=== PATIENT | female | born 1940 | race Caucasian/White ===

== ENCOUNTER 2019-06-30 14:33 | Inpatient (IN) | payer MEDICARE, OTHER ==
[~2019-06-30] VITALS: Ht 160 cm; Wt 66.0 kg
[~2019-06-30 14:33] MED LIST: ACET325 PO; ALIGN; Augmentin 875-1 EACH PO; Calcium Carbon500 MG PO; DIGESTIVE ADVANTAGE; DOCU100 PO; ESOMEPRAZOLE MA40 MG PO; ESTMEDA PO; Estradiol0.5 MG PO; GABA100 PO; GABA300 PO; IBUP800 PO; LEVSOD150 PO; MEDR2.5 PO; ONDA4ODT MM; Percocet 5-3251 EACH PO; VERA120 PO
[2019-06-30 15:09] LABS: BASOPHILS ABSOLUTE AUTO 0.02 K/mm3 (0.00-0.23); BASOPHILS PERCENT AUTO 0 % (0-2); EOSINOPHILS ABSOLUTE AUTO 0.11 K/mm3 (0.00-0.68); EOSINOPHILS PERCENT AUTO 2 % (0-6); Hematocrit 39.5 % (33.0-51.0); Hemoglobin 13.1 g/dL (11.5-16.0); IMMATURE GRAN ABSOLUTE AUTO 0.01 K/mm3 (0.00-0.10); IMMATURE GRAN PERCENT AUTO 0 % (0-1); LYMPHOCYTES ABSOLUTE AUTO 1.21 K/mm3 (0.84-5.20); LYMPHOCYTES PERCENT AUTO 21 % (21-46); MONOCYTES ABSOLUTE AUTO 0.48 K/mm3 (0.16-1.47); MONOCYTES PERCENT AUTO 8 % (4-13); Mean Corpuscular HGB Conc 33.2 g/dL (31.5-36.5); Mean Corpuscular Volume 90 fL (80-100); Mean Platelet Volume 9.7 fL (9.1-12.4); NEUTROPHILS ABSOLUTE AUTO 3.99 K/mm3 (1.96-9.15); NEUTROPHILS PERCENT AUTO 69 % (41-73); Platelet Count 276 K/mm3 (150-400); RDW Coefficient Variation 14.6 % (11.7-14.2); RDW Standard Deviation 48.8 fL (35.1-46.3); Red Blood Cell Count 4.37 M/mm3 (3.80-5.20); White Blood Cell Count 5.82 K/mm3 (4.00-11.30)
[2019-06-30 15:33] LABS: Alanine Aminotransfer (ALT/SGP 27 U/L (12-78); Albumin, Blood 3.7 g/dL (3.4-5.0); Albumin/Globulin Ratio 1.3 (0.8-1.8); Alk Phos 56 U/L (50-136); Anion Gap 5 mmol/L (6-16); Aspartate Aminotrans (AST/SGOT 21 U/L (12-37); Bilirubin, Total 0.4 mg/dL (0.1-1.0); Blood Urea Nitrogen 15 mg/dL (8-24); Bun/Creatinine Ratio 25.1 (12.0-20.0); CO2, Blood 25 mmol/L (21-32); Calcium, Blood 8.8 mg/dL (8.5-10.1); Chloride, Blood 114 mmol/L (98-108); Globulin, Blood 2.8 g/dL (2.2-4.0); Glomerular Filtration Rate >60 (60-); Glucose, Blood 120 mg/dL (70-99); Potassium, Blood 3.5 mmol/L (3.5-5.5); Sodium, Blood 144 mmol/L (136-145); Total Protein, Blood 6.5 g/dL (6.4-8.2); Troponin I 0.422 ng/mL (0.000-0.040)
[2019-06-30] MEDS ORDERED: GLUCOSAMINE/CHONDROI PO (16:02)
--- NOTE | 2019-06-30 19:20 | NUR ---
[address] GUADARRAMA. NEED ONE MORE TROP AND EKG 9PM. EXPECT CATH IN AM. JESSICAO CHACHA
--- NOTE | 2019-06-30 19:22 | NUR ---
PT RECEIVED ABOUT 1830, SETTLED TO ROOM. DENIES CHEST PAIN OR DISCOMFORT. IS TALKING ON PHONE. A/O. H/R REG, NO MURMER NOTED. PER TELE NSR AT 74. LUNGS CLEAR, RESP EASY, UNLABORED. ON R.A. BTX4 LAST BM YEST. VOIDS PER BATHROOM. SBA NEUROPATHY. SOME UNSTEADY AND HAS FALLEN AT HOME. BED IN LOW POSITION, BED IN LOW POSITION, CALL LITE IN REAC, CALLS APPROP
[2019-07-01 05:32] LABS: Anion Gap 7 mmol/L (6-16); Blood Urea Nitrogen 12 mg/dL (8-24); Bun/Creatinine Ratio 23.1 (12.0-20.0); CHOL/HDL RATIO 4.4; CO2, Blood 23 mmol/L (21-32); Calcium, Blood 8.2 mg/dL (8.5-10.1); Chloride, Blood 115 mmol/L (98-108); Cholesterol 161 mg/dL (50-200); Creatinine, Blood 0.52 mg/dL (0.40-1.00); Glomerular Filtration Rate >60 (60-); Glucose, Blood 102 mg/dL (70-99); HDL Cholesterol 37 mg/dL (>39); LDL/HDL RATIO 2.7; Low Density Lipoprotein Chol 100 mg/dL (0-110); Potassium, Blood 3.5 mmol/L (3.5-5.5); Sodium, Blood 145 mmol/L (136-145); Triglycerides 119 mg/dL (30-160); Very Low Density Lipoprot Chol 23 mg/dL (6-32)
--- NOTE | 2019-07-01 05:36 | NUR ---
SHIFT SUMMARY: 78 Y/O FEMALE RESTED COMFORTABLY ALL SHIFT, PT RANG FOR ASSISTANCE ALL SHIFT WHEN UTILIZING BATHROOM X 1 STANDBY ASSIST, NO S/S BLEEDING NOTED OR VOICED, HEPARIN INFUSING WITHOUT ISSUE; NPO SINCE MIDNIGHT, SENT HOME ALL JEWELRY WITH LAST NIGHT TO INCLUDE EARRINGS, ALL RINGS, WATCH, DENIES NAUSEA OR PAIN, PT RECEIVED EKG X 1 LAST NIGHT FOR NON RADIATING CHEST PAIN RATED 2/10 WHICH IMMEDIATLY RESOLVED (EKG NSR AND HISTORICAL RECORDS ADMINISTRATOR VERIFIED), BED ALARM APPLIED (HISTORY OF FALLS X 2 PAST MONTH), BED LOW POSITION, CALL LIGHT AT SIDE.
--- NOTE | 2019-07-01 07:15 | NUR ---
PT PLEASAANT COOP A/O. TALKATIVE. DENIES CHEST PAIN, PRESSURE, DISCOMFORT. TALKING ON PHONE. H/R REG, NO MURMERNOTED. PER TELE: NSR AT 83. LUNGS CLEAR, RESP EASY, UNLABORED. ON R/A. TALKING FULL SENTENCES. BT X4 LAST BM YEST. HOLDING COLACE AND MIRALAX FOR PROCEDURE. VOIDS PER BATHROOM. BED IN LOW POSITION, CALL LITE IN REACH, CALLS APPROP. HEPARIN RUNNING PER ORDERS IN EMAR. PENDING DR DIAZ TO SEE PT.
--- NOTE | 2019-07-01 08:29 | NUR ---
PATIENT DID NOT EAT ANY BREAKFAST THIS SHIFT DUE TO BEING NPO AT THIS TIME FOR A PROCEDURE.
--- NOTE | 2019-07-01 09:54 | NUR ---
ECHOCARDIOGRAM COMPLETED
--- NOTE | 2019-07-01 11:00 | NUR ---
UPON ARRIVAL TO ICU R RADIAL SITE WITH POSSIBLE GRADE 1 HEMATOMA, AIR REMOVED FROM TR BAND, TR BAND REPOSITIONED AND REINFLATED (TOTAL 8 CC AIR). R RADIAL PROXIMAL SITE SOFT WITHOUT SWELLING POST REPOSITIONING, CMS CHECKS INTACT R HAND. SITE WAS REVIEWED WITH ALEKS VERDUGO AND RT SARAH.
--- NOTE | 2019-07-01 11:11 | NUR ---
PT ARRIVED TO ICU 2 AT 1054. PT AWAKE, BUT DROWSY, ORIENTED. SPO2 IS 92% ON RA. R FEMORAL SITE IS SOFT. R RADIAL SITE HAD SOME BRUISING AND FIRMNESS UPON ARRIVAL. HC STAFF READJUSTED THE TR BAND AND SITE APPEARS STABLE, MONITORING CLOSELY. PT EDUCATED ON ACTIVITY RESTRICTIONS RELATED TO ACCESS SITES.
--- NOTE | 2019-07-01 16:22 | NUR ---
SHIFT SUMMARY: PT'S FEMORAL SITE HAS DONE WELL SINCE DIRECTOR OF ACQUISITIONS WITH NO HEMATOMA. SHE HAS BEEN UP AND AMBULATED AND SITE REMAINS STABLE. HER R RADIAL SITE HAD A HEMATOMA BEFORE TR BAND WAS REMOVED. PRESSURE HAD TO BE HELD A COUPLE TIMES AND RIGHT NOW THE SITE IS SOFT. TR BAND IS OFF. SITE IS ECCHYMOTIC WELL. PT'S LUNGS REMAIN CLEAR, RA. SR, BP STABLE, SEE VITALS. VOIDING WITHOUT DIFFICULTY. PT'S IN AND ALL QUESTIOSN WERE ANSWERED. LOTS OF EDUCATION REGARDING PROCEDURE, POST CARE AND HEART DISEASE IN GENERAL GIVEN TO PT'S . CONTINUING TO MONITOR.
--- NOTE | 2019-07-01 16:31 | NUR ---
AGGRASTAT STOPPED AFTER 6 HOURS OF INFUSION PER DR. DIAZ'S ORDER.
--- NOTE | 2019-07-01 19:30 | NUR ---
ASSUMED CARE OF PT, REPORT RECEIVED FROM KARTIK FINK. PT ALERT AND ORIENTED. PT AMBULATORY WITH STANDBY ASSIST, PT REPORTS MULTIPLE FALLS AT HOME D/T BLE NEUROPATHY. ARMBOARD LOCATED ON RIGHT WRIST. RIGHT RADIAL SITE SOFT WITH 5-10 CM HEMATOMA THAT REMAINS UNCHANGED PER DAYSHIFT. RIGHT FEMORAL ACCESS SITE SOFT, NONTENDER WITH NO HEMATOMA. PT DENIES PAIN AT THIS TIME. VSS. SEE FULL SHIFT ASSESSMENT.
[2019-07-02 03:41] LABS: Hematocrit 40.1 % (33.0-51.0); Mean Corpuscular HGB 28.8 pg (26.0-34.0); Mean Corpuscular HGB Conc 32.4 g/dL (31.5-36.5); Mean Corpuscular Volume 89 fL (80-100); Mean Platelet Volume 9.4 fL (9.1-12.4); Platelet Count 295 K/mm3 (150-400); RDW Coefficient Variation 14.6 % (11.7-14.2); RDW Standard Deviation 47.6 fL (35.1-46.3); Red Blood Cell Count 4.51 M/mm3 (3.80-5.20); White Blood Cell Count 8.73 K/mm3 (4.00-11.30)
[2019-07-02 03:55] LABS: International Normalized Ratio 1.07; Prothrombin Time Results 11.3 Sec (9.7-11.5)
[2019-07-02 03:57] LABS: Anion Gap 8 mmol/L (6-16); Blood Urea Nitrogen 11 mg/dL (8-24); Bun/Creatinine Ratio 20.6 (12.0-20.0); CO2, Blood 22 mmol/L (21-32); Calcium, Blood 8.6 mg/dL (8.5-10.1); Chloride, Blood 114 mmol/L (98-108); Creatinine, Blood 0.54 mg/dL (0.40-1.00); Glomerular Filtration Rate >60 (60-); Glucose, Blood 119 mg/dL (70-99); Potassium, Blood 3.9 mmol/L (3.5-5.5); Sodium, Blood 144 mmol/L (136-145)
--- NOTE | 2019-07-02 05:59 | NUR ---
SHIFT SUMMARY NO ACUTE CHANGES OVERNIGHT. PT'S RIGHT RADIAL SITE HEMATOMA REMAINS UNCHANGED FROM BEGINNING OF SHIFT, PULSES AND SENSATION INTACT. RIGHT FEMORAL ACCESS SITE SOFT/NONTENDER, NO HEMATOMA. ALL VSS T/O SHIFT. WILL REPORT TO DAYSHIFT NURSE.
--- NOTE | 2019-07-02 07:15 | NUR ---
DR. MACHADO HERE TO SEE PATIENT. DR. MACHADO INFORMED THAT PATIENT HAS BRUISE AND HEMATOMA TO RIGHT RADIAL/ FA, BUT THAT IT HAS REMAINED UNCHANGED DURING PROJECT STRUCTURAL ENGINEER PER PROJECT STRUCTURAL ENGINEER RN. DR. MACHADO STATED THAT SITE WILL PROBABLY GET A LITTLE BIGGER AND TO LET PATIENT KNOW THIS. DR. MACHADO ALSO STATED THAT PATIENT WOULD NEED TO FOLLOW UP OUTPATIENT AND HAVE COUMADIN CHECK 3-5 DAYS AFTER DISCHARGE.
--- NOTE | 2019-07-02 08:00 | NUR ---
DR. BARRIOS IN ROOM TO SEE PATIENT. INFORMED THAT DR. MACHADO HAS BEEN IN TO SEE PATIENT AND THE DISCUSSION BETWEEN DR. MACHADO AND NURSE (STATED IN PREVIOUS NOTE). NO ORDERS OBTAINED AT THIS TIME.
--- NOTE | 2019-07-02 08:00 | NUR ---
INITIAL ASSESSMENT PATIENT RESTING QUIETLY IN BED UPON ENTERING ROOM. PATIENT ALERT AND ORIENTED X 4, AFEBRILE. PATIENT REPORTS NUMBNESS IN BILAT FEET- STATES HAS HAD NEUROPATHY FROM BACK. PATIENT STATES NEUROPATHY HAS MADE HER BALANCE UNSTABLE AT TIMES AND HAS HAD FALLS AT HOME. PATIENT SBA. PATIENT STATES SHE HAS MILD NECK PAIN FROM THE HOSPITAL BED BUT THAT HER PAIN IS MANAGEABLE AT THIS TIME. PATIENT SATTING 90% AND GREATER ON RA. LUNGS CLEAR THROUGHOUT. PATIENT IN NSR, HR 80S TO 90S. BP STABLE. GI WNL. WNL. SCAR NOTED TO LOWER BACK. R GROIN CATH ACCESS SITE WNL- NO BLEEDING, BRUISING, OR HEMATOMA NOTED; SITE SOFT TO PALPATION. R RADIAL ACCESS SITE AND R FA BRUISED WITH HEMATOMA. OUTREACH WORKER RN REPORTS THAT BRUISING AND HEMATOMA HAS REMAINED UNCHANGED T/O NIGHT. NO BLEEDING NOTED. BED LOW, CALL LIGHT IN REACH. WILL CONTINUE TO MONITOR PATIENT T/O SHIFT.
--- NOTE | 2019-07-02 12:15 | NUR ---
PATIENT SITTING UP ON SIDE OF BED EATING LUNCH. PATIENT HAS NO COMPLAINTS. PATIENT AFEBRILE. PATIENT REMAINS SATTING 90% AND GREATER ON RA. PATIENT IN NSR, HR 70S TO 80S. BP STABLE. R GROIN AND R RADIAL SITE REMAINS STABLE. R GROIN SITE SOFT TO PALPATION- NO BLEEDING, BRUISING, OR HEMATOMA NOTED. R RADIAL SITE/ FA REMAINS UNCHANGED; BRUISING AND SMALL HEMATOMA REMAIN; NO BLEEDING NOTED. NO OTHER ACUTE CHANGES TO NOTE ON AT THIS TIME. WILL CONTINUE TO MONITOR.
--- NOTE | 2019-07-02 12:27 | NUR ---
PHYSICAL THERAPY IN WORKING WITH PATIENT.
--- NOTE | 2019-07-02 12:33 | NUR ---
SHIFT SUMMARY PATIENT HAS REMAINED ALERT AND ORIENTED X 4, AFEBRILE. PATIENT PAIN FREE. PATIENT WORKED WITH PT. PATIENT SBA FOR SLIGHT INSTABILITY RELATED TO NEUROPATHY FROM BACK PROBLEMS. PATIENT REMAINED SATTING 90% AND GREATER ON RA. LUNGS CLEAR T/O. PATIENT REMAINED IN NSR, HR 70S TO 90S. BP STABLE. R RADIAL TOWEL FOLDER ACCESS SITE REMAINS STABLE- HAS BRUISING AND SMALL HEMATOMA BUT REMAINS UNCHANGED FROM YESTERDAY. NO BLEEDING NOTED. R GROIN SITE REMAINS STABLE- NO BLEEDING, BRUISING OR HEMATOMA NOTED. AND GI WNL. PATIENT HAS HAD GOOD APPETITE TODAY. IV SALINE LOCKED. PATIENT HAD BED BATH. BED LOW, CALL LIGHT IN REACH. PATIENT IS BEING TRANSFERRED TO MEDICAL FLOOR, ROOM 301. REPORT GIVEN TO MEDICAL FLOOR RN.
--- NOTE | 2019-07-02 12:51 | NUR ---
PATIENT TRANSFERRED TO ROOM 301.
--- NOTE | 2019-07-02 17:55 | NUR ---
SHIFT SUMMARY PATIENT PLEASANT. TRANSFER FROM ICU THIS AFTERNOON. NO ACUTE CONCERNS FROM THE PATIENT AT THIS TIME. SHE IS SAFELY INDEPENDENT, CALLS APPRORIATELY, ALERT AND ORIENTED. NO PAIN, AND DENIES ANY NEED AT THIS TIME.
--- NOTE | 2019-07-03 03:18 | NUR ---
shift summary. Pt slept well overnight with no c/o chest pain . Right groin site clean dry and intact. Pt anticipating d/c in am. No issues overnight.
[2019-07-03 05:01] LABS: International Normalized Ratio 2.11; Prothrombin Time Results 20.9 Sec (9.7-11.5)
[2019-07-03 05:05] LABS: Anion Gap 7 mmol/L (6-16); Blood Urea Nitrogen 13 mg/dL (8-24); Bun/Creatinine Ratio 23.3 (12.0-20.0); CO2, Blood 23 mmol/L (21-32); Calcium, Blood 8.6 mg/dL (8.5-10.1); Chloride, Blood 113 mmol/L (98-108); Creatinine, Blood 0.56 mg/dL (0.40-1.00); Glomerular Filtration Rate >60 (60-); Glucose, Blood 120 mg/dL (70-99); Potassium, Blood 3.7 mmol/L (3.5-5.5); Sodium, Blood 143 mmol/L (136-145)
--- NOTE | 2019-07-03 08:48 | NUR ---
NO BLEEDING FROM RT RADIAL SITE OR RT GROIN. DRESSING INTACT
[2019-07-03] MEDS ORDERED: PANT20 PO (11:11)
[2019-07-03] MEDS ORDERED: ASPI81CH PO (11:12)
[2019-07-03] MEDS ORDERED: TUMS500 MG PO (11:13)
[2019-07-03] MEDS ORDERED: ATOR80 PO (11:13)
[2019-07-03] MEDS ORDERED: CARV6.25 PO (11:14)
[2019-07-03] MEDS ORDERED: ENTRESTO 24 MG1 EACH PO (11:15)
[2019-07-03] MEDS ORDERED: CLOP75 PO (11:15)
[2019-07-03] MEDS ORDERED: WARF2.5 PO (11:16)
--- NOTE | 2019-07-03 12:24 | NUR ---
REVIEWED D'C. MADE 2 APPTS AND PATIENT AWARE OF WHEN THEY ARE FOR F/U. AWARE TO SLIP B[facility] AT [facility]. REVIEW ALL MEDS. AWARE CAN GO TO E.R. IF ANY PROBLEMS. ANSWER ALL QUESTIONS. IN W/C TO POV WITH SO. AWARE TO NOT TO DO ANY HEAVY LIFTING, OR ANY WORK.
== END 2019-07-03 12:17 | disposition home or self-care (01) | DRG 246 ==
LOC: ER 14:33 → MEDS 16:33 → ICUE 07-01 09:16 → MEDS 07-02 12:46 → ENPENDDIS 07-03 10:48 → MEDS 07-03 12:17
PROVIDERS: Internal Medicine Interventional Cardiology; Physician Assistant; ADMIT Hospitalist
PROC: 4A023N7 Measurement of Cardiac Sampling and Pressure, Left Heart, Percutaneous Approach (ICD-10-PCS; principal; 2019-07-01)
PROC: 027034Z Dilation of Coronary Artery, One Artery with Drug-eluting Intraluminal Device, Percutaneous Approach (ICD-10-PCS; 2019-07-01)
DX: I21.4 Non-ST elevation (NSTEMI) myocardial infarction (principal); I50.21 Acute systolic (congestive) heart failure; G62.9 Polyneuropathy, unspecified; E03.9 Hypothyroidism, unspecified; K21.9 Gastro-esophageal reflux disease without esophagitis; R29.6 Repeated falls; Z87.891 Personal history of nicotine dependence; Z79.899 Other long term (current) drug therapy
CPT/HCPCS: 36415; 71046; 80048; 80053; 80061; 82550; 82553; 83036; 83735; 83880; 84484; 85025; 85027; 85347; 85610; 85730; 93005; 93010; 93306; 93458; 96365; 96366; 97110; 97116; 97161; 99152; 99153; 99285-25; A9270; C1725; C1760; C1769; C1874; C1887; C1894; C9113; C9600; J1644; J2250; J3010; J3246; J7030; Q9967

== ENCOUNTER 2019-07-13 11:19 | Observation (INO) | payer MEDICARE, OTHER ==
[~2019-07-13] VITALS: Ht 160 cm; Wt 65.0 kg
[~2019-07-13 11:19] MED LIST changes: +ASPI81CH PO; +ATOR80 PO; +CARV6.25 PO; +CLOP75 PO; +ENTRESTO 24 MG1 EACH PO; +GLUCOSAMINE/CHONDROI PO; +PANT20 PO; +TUMS500 MG PO; +WARF2.5 PO
[2019-07-13 12:03] LABS: BASOPHILS ABSOLUTE AUTO 0.03 K/mm3 (0.00-0.23); BASOPHILS PERCENT AUTO 1 % (0-2); EOSINOPHILS ABSOLUTE AUTO 0.09 K/mm3 (0.00-0.68); EOSINOPHILS PERCENT AUTO 1 % (0-6); Hematocrit 39.9 % (33.0-51.0); Hemoglobin 12.8 g/dL (11.5-16.0); IMMATURE GRAN ABSOLUTE AUTO 0.01 K/mm3 (0.00-0.10); IMMATURE GRAN PERCENT AUTO 0 % (0-1); LYMPHOCYTES ABSOLUTE AUTO 1.17 K/mm3 (0.84-5.20); LYMPHOCYTES PERCENT AUTO 18 % (21-46); MONOCYTES ABSOLUTE AUTO 0.69 K/mm3 (0.16-1.47); MONOCYTES PERCENT AUTO 10 % (4-13); Mean Corpuscular HGB 29.1 pg (26.0-34.0); Mean Corpuscular HGB Conc 32.1 g/dL (31.5-36.5); Mean Corpuscular Volume 91 fL (80-100); Mean Platelet Volume 10.1 fL (9.1-12.4); NEUTROPHILS ABSOLUTE AUTO 4.63 K/mm3 (1.96-9.15); NEUTROPHILS PERCENT AUTO 70 % (41-73); Platelet Count 285 K/mm3 (150-400); RDW Coefficient Variation 14.3 % (11.7-14.2); RDW Standard Deviation 48.3 fL (35.1-46.3); White Blood Cell Count 6.62 K/mm3 (4.00-11.30)
[2019-07-13 12:16] LABS: International Normalized Ratio 1.57
[2019-07-13] MEDS ORDERED: METO25ER PO (12:27)
[2019-07-13 12:37] LABS: Alanine Aminotransfer (ALT/SGP 20 U/L (12-78); Albumin, Blood 3.5 g/dL (3.4-5.0); Albumin/Globulin Ratio 1.2 (0.8-1.8); Alk Phos 65 U/L (50-136); Anion Gap 4 mmol/L (6-16); Aspartate Aminotrans (AST/SGOT 14 U/L (12-37); Bilirubin, Total 1.3 mg/dL (0.1-1.0); Blood Urea Nitrogen 12 mg/dL (8-24); Bun/Creatinine Ratio 20.4 (12.0-20.0); CO2, Blood 27 mmol/L (21-32); Calcium, Blood 9.2 mg/dL (8.5-10.1); Chloride, Blood 112 mmol/L (98-108); Creatinine, Blood 0.59 mg/dL (0.40-1.00); Glomerular Filtration Rate >60 (60-); Glucose, Blood 102 mg/dL (70-99); Sodium, Blood 143 mmol/L (136-145); Total Protein, Blood 6.5 g/dL (6.4-8.2)
[2019-07-13 12:40] LABS: Anion Gap 5 mmol/L (6-16); Blood Urea Nitrogen 11 mg/dL (8-24); Bun/Creatinine Ratio 18.3 (12.0-20.0); CO2, Blood 27 mmol/L (21-32); Calcium, Blood 9.1 mg/dL (8.5-10.1); Chloride, Blood 111 mmol/L (98-108); Glomerular Filtration Rate >60 (60-); Glucose, Blood 101 mg/dL (70-99); Sodium, Blood 143 mmol/L (136-145)
--- NOTE | 2019-07-13 17:15 | NUR ---
ARRIVAL NOTE: PT IS ALERT AND ORIENTED X3. SOMEWHAT DROWSY FROM SEDATION BUT AWAKENS EASILY. DENIES ANY PAIN AT THIS TIME BUT REPORTS CHRONIC BACK PAIN. PT REMAINS SUPINE FOR RECVOERY SHE HAS A RT GROIN SITE THAT IS SOFT/STABLE, WITH SMALL AMT OF OLD BLOOD ON MAURICE DRSG. LUNGS ARE CLEAR T/O BILATERALLY. HR REGULAR, SR-90'S RANGE. IV TO LT AC, PATENT, SL'D. NO VOID YET. PT EDUCATED ON ACTIVITY RESTRICTIONS DURING POST PROCEDURE PERIOD.
--- NOTE | 2019-07-13 18:23 | NUR ---
SHIFT SUMMARY: PT REPORTS INCREASING BACK PAIN R/T CHRONIC BACK PAIN/HX OF BACK SURGERY. PT MEDICATED WITH TYLENOL #3, THIS IS WHAT SHE REPORTS SHE USES AT HOME AND PT REPORTS "PLAIN TYLENOL DOES NOTHING FOR ME." PT HERE PCU STATUS S/P PCI, WITH PROBABLE DISCHARGE HOME TODAY AND NEEDS F/U STENTING TO THE [facility] PER [facility] STAFF, PT/FAMILY AWARE OF THIS AND REPORT THE DR TALKED WITH THEM IN RE: TO F/U CARE. RT GROIN SITE IS STABLE, SMALL AMT OF BLOOD ON MAURICE DRSG, UNCHANGED SINCE PT'S ARRIVAL. PT TO REMAIN SUPINE UNTIL APPROXIMATELY 2014.
--- NOTE | 2019-07-13 19:28 | NUR ---
REPORTED OFF TO KARTIK ALVARES WHOM ASSUMED CARE OF THIS PT. RT GROIN SITE VISUALIZED WITH KARTIK ALVARES, AND RE-EDUCATED PT ON ACITIVITY RESTRICTIONS POST PCI.
--- NOTE | 2019-07-14 04:10 | NUR ---
UPDATE: PT WITH NO NEW CHANGES FROM INITIAL ASSESSMENT. PT HAS BEEN UP TO [facility] X3 THIS SHIFT THUS FAR WITH NO C/O NOR CHANGES TO R FEMORAL SITE. PT CURRENTLY SITTING UP IN BED READING A BOOK. PT REMAINS A+O AND APPROPRIATE. VSS.
--- NOTE | 2019-07-14 07:45 | NUR ---
ASSUMED CARE OF PATIENT; SEE ASSESSMENT CHARTING FOR DETAILS. PATIENT PLEASANT AND COOPERATIVE; SHORT TERM MEMORY SLIGHTLY OFF BUT FOLLOWS COMMANDS WELL. LUNGS CLEAR AND BIOX. STABLE ON ROOM AIR. MONITOR NSR WITHOUT ECTOPY AND VSS. DENIES ACUTE DISCOMFORT. R GROIN SITE UNCHANGED; DRESSING WITH NICKEL SIZED DRY BLOOD SPOT/INTACT. TISSUE SOFT AND NO NOTED SWELLING. UP FOR BRP WITH SBA; VOIDED 550ML OF MED. YELLOW URINE.
--- NOTE | 2019-07-14 09:30 | NUR ---
DR. GU MAKING ROUNDS AND PLANS TO WRITE D/C ORDERS FOR PATIENT; NO NEW PRESCRIPTIONS.
--- NOTE | 2019-07-14 10:35 | NUR ---
DR. GU PLACED D/C ORDERS; RN PREPARING PATIENT FOR D/C HOME.
--- NOTE | 2019-07-14 11:15 | NUR ---
DISCHARGE INSTRUCTIONS GIVEN TO PATIENT AND SPOUSE WITH VERBAL AND WRITTEN ACKNOWLEDGEMENT. NO NEW PRESCRIPTIONS; PATIENT TO STOP COUMADIN, HOWEVER; VERY CLEARLY EXPLAINED AND THEN WRITTEN IN INSTRUCTIONS. IV SITE DC'D WITHOUT INCIDENT AND PATIENT OOB AND CHANGED INTO OWN CLOTHES.
--- NOTE | 2019-07-14 11:20 | NUR ---
DISCHARGED TO HOME. TO PRIVATE CAR VIA W/C. SPOUSE AND RN ACCOMPANYING PATIENT TO VEHICLE AND SPOUSE DRIVING PATIENT HOME. PERSONAL BELONGINGS WELL STENT CARD AND MULTIPLE D/C INSTRUCTIONS HOME WITH PATIENT.
== END 2019-07-14 11:20 | disposition home or self-care (01) ==
LOC: ICUW 11:19 → MHTC 11:19 → ICUW 16:43 → MHTC 16:44 → ICUW 16:44
PROVIDERS: Internal Medicine; ADMIT Internal Medicine Cardiovascular Disease
DX: I21.4 Non-ST elevation (NSTEMI) myocardial infarction (principal); I25.10 Atherosclerotic heart disease of native coronary artery without angina pectoris; I11.9 Hypertensive heart disease without heart failure; E03.9 Hypothyroidism, unspecified; K21.9 Gastro-esophageal reflux disease without esophagitis; Z95.5 Presence of coronary angioplasty implant and graft; Z79.891 Long term (current) use of opiate analgesic; Z87.891 Personal history of nicotine dependence; Z79.02 Long term (current) use of antithrombotics/antiplatelets; Z79.899 Other long term (current) drug therapy; Z79.82 Long term (current) use of aspirin
CPT/HCPCS: 36415; 80048; 80053; 85025; 85347; 85610; 99152; 99153; A9270; C1725; C1753; C1760; C1769; C1874; C1887; C9113; C9600; G0378; J1644; J2250; J3010; J7030; Q9967

== ENCOUNTER → 2019-09-11 | Outpatient (CLI) | payer MEDICARE, OTHER ==
[~2019-09-11] MED LIST changes: +METO25ER PO
[2019-09-11 12:12] LABS: Source, Urine Clean Catch
[2019-09-11 12:48] LABS: Bilirubin, Urine Neg (Neg); Blood, Urine 1+ (Neg); Glucose Qualitative, Urine Neg (Neg); Ketones, Urine Neg (Neg); Leukocyte Esterase, Urine 2+ (Neg); Nitrite, Urine Neg (Neg); Protein, Urine Neg (Neg); Specific Gravity, Urine 1.005 (1.003-1.022); Urobilinogen, Urine NORM (Normal); pH, Urine 6.5 (5.0-8.0)
[2019-09-11 12:59] LABS: Appearance, Urine Clear (Clear); Color, Urine Yellow (P-Yellow); Red Blood Cells, Urine 0-2 /hpf (0-2)
[2019-09-11 13:00] LABS: Bacteria Few /hpf; Squamous Epithelial Cells Few /hpf (Few)
== END | disposition home or self-care (01) ==
LOC: LAB SHORT 11:30 → LAB 11:30
PROVIDERS: Internal Medicine
DX: N39.0 Urinary tract infection, site not specified (principal); R30.0 Dysuria
CPT/HCPCS: 81001; 87077; 87086; 87186

== ENCOUNTER 2021-05-30 08:23 | Day surgery (SDC) | payer MEDICARE, OTHER ==
[~2021-05-30] VITALS: Ht 157.5 cm; Wt 56.0 kg
[~2021-05-30 08:23] MED LIST changes: +Aspir 8181 MG PO; +C COMPLEX1000 M1 PO; +ESTRADIOL0.5 MG PO; +LOSARTAN POTAS100 M1 PO; +Lovastatin20 MG PO; +NEBI5 PO; +Nexium40 MG PO; +THERA-D2000 UNIT PO; +TRAM50 PO; +[UNRECOGNIZED DRUG - CODE] PO
--- NOTE | 2021-05-30 09:01 | NUR ---
05/30/21 0901 Mercy Swanson ONE ATTEMPT IN RFA VALVE BY ANITHA SECOND SUCCESSFUL BY ANITHA IN RH PT TOW
== END 2021-05-30 11:20 | disposition home or self-care (01) ==
LOC: ORSCSDS 08:23
PROVIDERS: Internal Medicine Gastroenterology
PROC: 0DB98ZX Excision of Duodenum, Via Natural or Artificial Opening Endoscopic, Diagnostic (ICD-10-PCS; principal; 2021-05-30 09:45)
PROC: 0DJD8ZZ Inspection of Lower Intestinal Tract, Via Natural or Artificial Opening Endoscopic (ICD-10-PCS; principal; 2021-05-30 09:45)
PROC: 0DB68ZX Excision of Stomach, Via Natural or Artificial Opening Endoscopic, Diagnostic (ICD-10-PCS; principal; 2021-05-30 09:45)
PROC: 0DB58ZX Excision of Esophagus, Via Natural or Artificial Opening Endoscopic, Diagnostic (ICD-10-PCS; principal; 2021-05-30 09:45)
DX: R63.4 Abnormal weight loss (principal); R19.4 Change in bowel habit; K29.80 Duodenitis without bleeding; K57.30 Diverticulosis of large intestine without perforation or abscess without bleeding; I25.2 Old myocardial infarction; G47.30 Sleep apnea, unspecified; Z87.891 Personal history of nicotine dependence; Z68.22 Body mass index [BMI] 22.0-22.9, adult; Z79.82 Long term (current) use of aspirin; Z79.899 Other long term (current) drug therapy
CPT/HCPCS: 88305; 88342; J2704; J7120

== ENCOUNTER 2021-10-28 13:50 | Emergency (ER) | payer MEDICARE, OTHER ==
[~2021-10-28] VITALS: Ht 160 cm; Wt 56.7 kg
[~2021-10-28 13:50] MED LIST changes: +ACET500 PO
[2021-10-28 14:52] LABS: BASOPHILS ABSOLUTE AUTO 0.02 K/mm3 (0.00-0.23); BASOPHILS PERCENT AUTO 0 % (0-2); EOSINOPHILS ABSOLUTE AUTO 0.09 K/mm3 (0.00-0.68); EOSINOPHILS PERCENT AUTO 2 % (0-6); Hematocrit 38.2 % (33.0-51.0); Hemoglobin 12.5 g/dL (11.5-16.0); IMMATURE GRAN ABSOLUTE AUTO 0.01 K/mm3 (0.00-0.10); IMMATURE GRAN PERCENT AUTO 0 % (0-1); LYMPHOCYTES ABSOLUTE AUTO 1.17 K/mm3 (0.84-5.20); LYMPHOCYTES PERCENT AUTO 21 % (21-46); MONOCYTES ABSOLUTE AUTO 0.44 K/mm3 (0.16-1.47); MONOCYTES PERCENT AUTO 8 % (4-13); Mean Corpuscular HGB 29.2 pg (26.0-34.0); Mean Corpuscular HGB Conc 32.7 g/dL (31.5-36.5); Mean Corpuscular Volume 89 fL (80-100); Mean Platelet Volume 9.5 fL (9.1-12.4); NEUTROPHILS ABSOLUTE AUTO 3.96 K/mm3 (1.96-9.15); NEUTROPHILS PERCENT AUTO 70 % (41-73); Platelet Count 242 K/mm3 (150-400); RDW Coefficient Variation 13.7 % (11.7-14.2); RDW Standard Deviation 44.4 fL (35.1-46.3); Red Blood Cell Count 4.28 M/mm3 (3.80-5.20); White Blood Cell Count 5.69 K/mm3 (4.00-11.30)
[2021-10-28 15:13] LABS: Alanine Aminotransfer (ALT/SGP 21 U/L (12-78); Albumin, Blood 3.6 g/dL (3.4-5.0); Albumin/Globulin Ratio 1.2 (0.8-1.8); Alk Phos 69 U/L (50-136); Anion Gap 4 mmol/L (6-16); Aspartate Aminotrans (AST/SGOT 14 U/L (12-37); Bilirubin, Total 0.8 mg/dL (0.1-1.0); Blood Urea Nitrogen 20 mg/dL (8-24); Bun/Creatinine Ratio 28.4 (12.0-20.0); CO2, Blood 25 mmol/L (21-32); Calcium, Blood 8.7 mg/dL (8.5-10.1); Chloride, Blood 112 mmol/L (98-108); Globulin, Blood 2.9 g/dL (2.2-4.0); Glomerular Filtration Rate >60 (60-); Glucose, Blood 131 mg/dL (70-99); Potassium, Blood 3.7 mmol/L (3.5-5.5); Sodium, Blood 141 mmol/L (136-145); Total Protein, Blood 6.5 g/dL (6.4-8.2); Troponin I <0.015 ng/mL (0.000-0.040)
[2021-10-28] MEDS ORDERED: CLOP75 PO (17:41)
== END 2021-10-28 18:04 | disposition home or self-care (01) ==
LOC: ER 13:50
PROVIDERS: Physician Assistant
DX: G45.9 Transient cerebral ischemic attack, unspecified (principal); Z87.891 Personal history of nicotine dependence; I25.2 Old myocardial infarction; Z79.899 Other long term (current) drug therapy; Z79.891 Long term (current) use of opiate analgesic
CPT/HCPCS: 36415; 70450; 80053; 84484; 85025; 93005; 93010; 99284-25; A9270

== ENCOUNTER → 2022-04-28 | Outpatient (CLI) | payer MEDICARE, OTHER ==
[2022-04-28 12:28] LABS: Source, Urine Clean Catch
[2022-04-28 12:44] LABS: Bilirubin, Urine Neg (Neg); Blood, Urine 2+ (Neg); Glucose Qualitative, Urine Neg (Neg); Ketones, Urine Neg (Neg); Leukocyte Esterase, Urine 3+ (Neg); Nitrite, Urine Neg (Neg); Protein, Urine 1+ (Neg); Specific Gravity, Urine 1.015 (1.003-1.022); Urobilinogen, Urine NORM (Normal)
[2022-04-28 13:07] LABS: Appearance, Urine Hazy (Clear); Bacteria Few /hpf; Color, Urine Yellow (P-Yellow); Squamous Epithelial Cells Not Seen /hpf (Few); White Blood Cells, Urine TNTC /hpf (0-5)
== END ==
LOC: LAB SHORT 12:04 → LAB 12:04
PROVIDERS: Internal Medicine
DX: R30.0 Dysuria (principal)
CPT/HCPCS: 81001

== ENCOUNTER → 2022-05-22 | Outpatient (CLI) | payer MEDICARE, OTHER ==
[2022-05-22 15:28] LABS: Source, Urine Clean Catch
[2022-05-22 16:33] LABS: Appearance, Urine Cloudy (Clear); Blood, Urine 2+ (Neg); Glucose Qualitative, Urine Neg (Neg); Ketones, Urine Neg (Neg); Leukocyte Esterase, Urine 3+ (Neg); Nitrite, Urine Pos (Neg); Protein, Urine 1+ (Neg); Specific Gravity, Urine 1.015 (1.003-1.022); Urobilinogen, Urine 1+ (Normal)
[2022-05-22 16:46] LABS: Bilirubin, Urine 1+ (Neg)
[2022-05-22 16:47] LABS: Color, Urine Yellow (P-Yellow)
[2022-05-22 16:48] LABS: Bacteria Many /hpf; Squamous Epithelial Cells Rare /hpf (Few); White Blood Cells, Urine TNTC /hpf (0-5)
== END | disposition home or self-care (01) ==
LOC: LAB SHORT 15:15 → LAB 15:15
PROVIDERS: Internal Medicine
DX: N39.0 Urinary tract infection, site not specified (principal); R30.0 Dysuria
CPT/HCPCS: 81001; 87077; 87086; 87186

== ENCOUNTER → 2022-06-03 | Outpatient (CLI) | payer MEDICARE, OTHER ==
[2022-06-03 14:36] LABS: Source, Urine Clean Catch
[2022-06-03 17:27] LABS: Appearance, Urine Turbid (Clear); Bilirubin, Urine Neg (Neg); Blood, Urine 1+ (Neg); Color, Urine Yellow (P-Yellow); Glucose Qualitative, Urine Neg (Neg); Ketones, Urine 1+ (Neg); Leukocyte Esterase, Urine 1+ (Neg); Nitrite, Urine Neg (Neg); Protein, Urine Neg (Neg); Urobilinogen, Urine NORM (Normal)
[2022-06-03 18:03] LABS: Amorphous Heavy (0-Heavy); Bacteria Many /hpf; Red Blood Cells, Urine 0-2 /hpf (0-2); Squamous Epithelial Cells Few /hpf (Few); Transitional Epithelial Cells Rare /hpf (0-Rare)
== END ==
LOC: LAB SHORT 14:34 → LAB 14:34 → LAB FUT 05-22 13:55
PROVIDERS: Internal Medicine
DX: N39.0 Urinary tract infection, site not specified (principal); R30.0 Dysuria
CPT/HCPCS: 81001

== ENCOUNTER 2022-09-23 06:04 | Day surgery (SDC) | payer MEDICARE, OTHER ==
[~2022-09-23] VITALS: Ht 157.5 cm; Wt 55.4 kg
[2022-09-23] MEDS ORDERED: PANT20 PO (07:41)
--- NOTE | 2022-09-23 08:25 | NUR ---
09/23/22 0825 Virgilio Perdue 1G CHILO STARTED IN PREOP
--- NOTE | 2022-09-23 10:44 | NUR ---
ARRIVAL PT ARRIVED TO UNIT FROM PACU ON BED AT 1030. PT AA0X4, SHE DENIES PAIN AT THIS TIME. NUMBNESS FROM TOES TO HIP, UNABLE TO MOVE TOES OR LOWER EXTREMETIES. EDUCATED PATIENT ON PAIN MANAGEMENT GOALS AND IMPORTANCE OF CALLING ONCE SHE BEGINS TO FEEL PAIN BEGINNING. PROVIDED WITH WATER, JELLO AND CRACKERS. PT TOLERATING SMALL SIPS SO FAR. CALL LIGHT IN REACH. POLAR PACK IN PLACE, SCD'S ON. DRESSING TO R HIP REMAINS CDI. PT DENIES FURTHER NEEDS AT THIS TIME. ON ROOM AIR SATS 98-100%
--- NOTE | 2022-09-23 13:21 | NUR ---
PT ABLE TO MOVE HER TOES AND LIFT HER LEG. SHE REPORTS SENSATION FULLY INTACT EXCEPT THE OUTER ASPECT OF HER HIP. SHE CONTINUES TO DENY PAIN.
--- NOTE | 2022-09-23 17:29 | NUR ---
SHIFT SUMMARY R MISTY PT AA0X4, PAIN WELL CONTROLLED PER EMAR, PATIENT REPORTS TOLERABLE. SHE HAS WORKED WITH THERAPY AND THE PLAN IS TO WORK AGAIN TOMORROW. TOLERATING PO WELL. NO NAUSEA. VOIDING WELL. DRESSING REMAINS CDI. PT HAS FULL SENSATION AT THIS TIME.
--- NOTE | 2022-09-24 04:31 | NUR ---
SUMMARY NO NEW ISSUES NOTED. PT AMBULATORY AND VOIDING WELL. PT PAIN MANAGED WELL. PT CURRENTLY SLEEPING IN NO DISTRESS. CALL LIGHT IN REACH.
[2022-09-24 04:58] LABS: BASOPHILS ABSOLUTE AUTO 0.01 K/mm3 (0.00-0.23); BASOPHILS PERCENT AUTO 0 % (0-2); EOSINOPHILS PERCENT AUTO 0 % (0-6); Hematocrit 26.6 % (33.0-51.0); Hemoglobin 8.6 g/dL (11.5-16.0); IMMATURE GRAN ABSOLUTE AUTO 0.01 K/mm3 (0.00-0.10); IMMATURE GRAN PERCENT AUTO 0 % (0-1); LYMPHOCYTES ABSOLUTE AUTO 0.49 K/mm3 (0.84-5.20); LYMPHOCYTES PERCENT AUTO 8 % (21-46); MONOCYTES ABSOLUTE AUTO 0.66 K/mm3 (0.16-1.47); MONOCYTES PERCENT AUTO 11 % (4-13); Mean Corpuscular HGB 29.3 pg (26.0-34.0); Mean Corpuscular HGB Conc 32.3 g/dL (31.5-36.5); Mean Corpuscular Volume 91 fL (80-100); Mean Platelet Volume 9.3 fL (9.1-12.4); NEUTROPHILS PERCENT AUTO 81 % (41-73); Platelet Count 174 K/mm3 (150-400); RDW Coefficient Variation 13.3 % (11.7-14.2); RDW Standard Deviation 43.3 fL (35.1-46.3); Red Blood Cell Count 2.94 M/mm3 (3.80-5.20); White Blood Cell Count 6.27 K/mm3 (4.00-11.30)
[2022-09-24 05:16] LABS: Bun/Creatinine Ratio 24.7 (12.0-20.0); Calcium, Blood 8.6 mg/dL (8.5-10.1); Creatinine, Blood 0.77 mg/dL (0.40-1.00); Magnesium, Blood 1.9 mg/dL (1.6-2.4); Potassium, Blood 4.3 mmol/L (3.5-5.5)
[2022-09-24] MEDS ORDERED: OXYC5 PO (09:50)
[2022-09-24] MEDS ORDERED: PROM25 PO (09:51)
--- NOTE | 2022-09-24 11:13 | NUR ---
DISCHARGE SUMMARY POD1 R MISTY, A/OX4, VSS THOUG SYSTOLIC BP HAS BEEN SOFT THROUGH THE NIGHT WITH AM BP AT NORMAL LEVELS. TOLERATING PO, REPORTS MINIMAL PAIN WHICH IS MANAGED WITH ORAL PAIN MEDS, VOIDING WELL. IV ACCESS REMOVED AND NO OTHER DEVICES IN PLACE. DISCUSSED DISCHARGE INFORMATION WITH THE PT INCLUDING HOME MEDICATIONS, HOME CARE INCLUDING DRESSING CHANGES AND SITE CARE, FOLLOW UP APPOINTMENTS, AND CONTACT INFORMATION SHOULD QUESTIONS COME UP AFTER DC. NO QUESTIONS AT THIS TIME. PT ESCORTED OUT VIA WC TO PRIVATE AUTO TO GO HOME. EXTRA DRESSINGS PROVIDED AT TIME OF DC.
== END 2022-09-24 10:49 | disposition home or self-care (01) ==
LOC: ORSCMMR 06:04 → ORD 07:30 → ORSCMMR 07:30 → SURS 10:20 → ORSCMMR 09-24 10:49
PROVIDERS: Orthopaedic Surgery
PROC: 0SR90JA Replacement of Right Hip Joint with Synthetic Substitute, Uncemented, Open Approach (ICD-10-PCS; principal; 2022-09-23 07:30)
DX: M16.11 Unilateral primary osteoarthritis, right hip (principal); Z96.642 Presence of left artificial hip joint; Z86.73 Personal history of transient ischemic attack (TIA), and cerebral infarction without residual deficits; I25.10 Atherosclerotic heart disease of native coronary artery without angina pectoris; I50.9 Heart failure, unspecified; I25.2 Old myocardial infarction; E03.9 Hypothyroidism, unspecified; K21.9 Gastro-esophageal reflux disease without esophagitis; Z79.02 Long term (current) use of antithrombotics/antiplatelets; Z79.82 Long term (current) use of aspirin; Z79.899 Other long term (current) drug therapy; Z87.891 Personal history of nicotine dependence
CPT/HCPCS: 36415; 72170; 80048; 83735; 85025; 97110; 97116; 97162; 97165; 97530; 97535; A9270; C1713; C1776; C9113; J0171; J0690; J0735; J1100; J1885; J2250; J2405; J2704; J2795; J3010; J3370; J7120

== ENCOUNTER → 2023-01-30 | Outpatient (CLI) | payer MEDICARE, OTHER ==
[~2023-01-30] MED LIST changes: +OXYC5 PO; +PROM25 PO
== END | disposition home or self-care (01) ==
LOC: LAB 10:57 → LAB SHORT 10:57
DX: R30.0 Dysuria (principal)
CPT/HCPCS: 87077; 87086; 87186

== ENCOUNTER → 2023-02-26 | Outpatient (CLI) | payer MEDICARE, OTHER ==
[2023-02-26 13:44] LABS: Source, Urine Clean Catch
[2023-02-26 15:24] LABS: Appearance, Urine Hazy (Clear); Bilirubin, Urine Neg (Neg); Blood, Urine 1+ (Neg); Color, Urine Yellow (P-Yellow); Glucose Qualitative, Urine Neg (Neg); Ketones, Urine Neg (Neg); Leukocyte Esterase, Urine Neg (Neg); Nitrite, Urine Neg (Neg); Protein, Urine Neg (Neg); Urobilinogen, Urine NORM (Normal)
[2023-02-26 15:40] LABS: Red Blood Cells, Urine 0-2 /hpf (0-2); Triple Phosphate Crystals Mod /hpf; Uric Acid Crystals Few /hpf; White Blood Cells, Urine 0-2 /hpf (0-5)
[2023-02-26 15:41] LABS: Bacteria Few /hpf; Renal Epithelial Few /hpf (0-Rare); Squamous Epithelial Cells Not Seen /hpf (Few)
== END ==
LOC: LAB SHORT 13:35 → LAB FUT 01-13 10:25
PROVIDERS: Internal Medicine
DX: N39.0 Urinary tract infection, site not specified (principal)
CPT/HCPCS: 81001

== ENCOUNTER → 2023-04-19 | Outpatient (CLI) | payer MEDICARE, OTHER | END | disposition home or self-care (01) | LOC: LAB 10:39 → LAB SHORT 10:39 | DX: N39.0 Urinary tract infection, site not specified (principal) | CPT/HCPCS: 87077; 87086; 87186 ==

== ENCOUNTER → 2023-05-10 | Outpatient (CLI) | payer MEDICARE, OTHER | END | disposition home or self-care (01) | LOC: LAB SHORT 17:52 → LAB 17:52 | DX: N39.0 Urinary tract infection, site not specified (principal) | CPT/HCPCS: 87077; 87086; 87186 ==

== ENCOUNTER → 2023-05-12 | Outpatient (CLI) | payer MEDICARE, OTHER | END | disposition home or self-care (01) | LOC: LAB 10:14 → LAB SHORT 10:14 | DX: N39.0 Urinary tract infection, site not specified (principal) | CPT/HCPCS: 87077; 87086; 87186 ==

== ENCOUNTER → 2023-07-28 | Outpatient (CLI) | payer MEDICARE, OTHER ==
[2023-07-28 11:53] LABS: Source, Urine Clean Catch
[2023-07-28 14:10] LABS: Appearance, Urine Hazy (Clear); Bilirubin, Urine Neg (Neg); Blood, Urine 2+ (Neg); Color, Urine Yellow (P-Yellow); Glucose Qualitative, Urine Neg (Neg); Ketones, Urine Neg (Neg); Leukocyte Esterase, Urine Neg (Neg); Nitrite, Urine Neg (Neg); Protein, Urine Neg (Neg); Urobilinogen, Urine NORM (Normal)
[2023-07-28 14:45] LABS: Bacteria Few /hpf; Squamous Epithelial Cells Few /hpf (Few); White Blood Cells, Urine 0-2 /hpf (0-5)
== END | disposition home or self-care (01) ==
LOC: LAB 11:52 → LAB SHORT 11:52 → LAB FUT 07-22 10:20 → EDSTATUS 07-22 10:20
PROVIDERS: Internal Medicine
DX: R82.90 Unspecified abnormal findings in urine (principal)
CPT/HCPCS: 81001

== ENCOUNTER → 2023-08-26 | Outpatient (CLI) | payer MEDICARE, OTHER ==
[2023-09-01 16:09] LABS: CRYPTOSPORIDIUM EIA Negative (Negative)
== END ==
LOC: LAB 09:35 → LAB SHORT 09:35 → LAB FUT 08-16 13:15
PROVIDERS: Physician Assistant
DX: R19.7 Diarrhea, unspecified (principal)
CPT/HCPCS: 87328; 87329

== ENCOUNTER → 2023-10-29 | Outpatient (CLI) | payer MEDICARE, OTHER ==
[2023-11-03 00:24] LABS: CALPROTECTIN,FECAL 55 ug/g (<=49)
== END ==
LOC: LAB SHORT 09:30 → LAB 09:30 → LAB FUT 10-27 13:40
PROVIDERS: Physician Assistant
DX: R19.7 Diarrhea, unspecified (principal)
CPT/HCPCS: 83993

== ENCOUNTER 2023-12-24 09:48 | Day surgery (SDC) | payer MEDICARE, OTHER ==
[~2023-12-24] VITALS: Ht 160 cm; Wt 61.9 kg
[2023-12-24] MEDS ORDERED: ESTRADIOL-NORE1 EAC1 PO (10:24)
--- NOTE | 2023-12-24 14:12 | NUR ---
12/24/23 1412 RAMSES PARRY PT PLACED BACK ON O2 AT 10L O2 DROPPED TO 91% ON RA. PAIN IS GETTING BETTER BUT SATS DECREASED. PT APPEARS MORE COMFORTABLE.
[2023-12-24 14:45] VITALS: BP 89/65
== END 2023-12-24 15:40 | disposition home or self-care (01) ==
LOC: ORSCSDS 09:48
PROVIDERS: Podiatrist Foot & Ankle Surgery
PROC: 0QSR04Z Reposition Left Toe Phalanx with Internal Fixation Device, Open Approach (ICD-10-PCS; principal; 2023-12-24 11:15)
PROC: 0SGL04Z Fusion of Left Tarsometatarsal Joint with Internal Fixation Device, Open Approach (ICD-10-PCS; principal; 2023-12-24 11:15)
DX: M21.612 Bunion of left foot (principal); I10 Essential (primary) hypertension; E03.9 Hypothyroidism, unspecified; I25.2 Old myocardial infarction; Z87.891 Personal history of nicotine dependence; E78.5 Hyperlipidemia, unspecified; Z79.02 Long term (current) use of antithrombotics/antiplatelets; Z79.899 Other long term (current) drug therapy
CPT/HCPCS: A9270; C1713; J0690; J1170; J2704; J2795; J3010; J7120

== ENCOUNTER 2024-11-24 09:27 | Day surgery (SDC) | payer MEDICARE, OTHER ==
[~2024-11-24] VITALS: Ht 160 cm; Wt 64.2 kg
[~2024-11-24 09:27] MED LIST changes: +ESTRADIOL-NORE1 EAC1 PO; +ESTRADIOL42.5 GM; +IPRATROPIUM BRO30 ML; +Lactated Ringer's 1,000 ML IV ONE
[2024-11-24] MEDS ORDERED: propofoL 20 ML IV ONE (10:04)
[2024-11-24] MEDS ORDERED: Ketorolac Tromethamine 30mg Vial ONE (10:04)
[2024-11-24] MEDS ORDERED: Dexamethasone Sod Phos 10 MG/ML 1ML VIAL ONE (10:04)
[2024-11-24] MEDS ORDERED: Ondansetron HCl 2 MG / ML 2ML Vial ONE (10:04)
[2024-11-24] MEDS ORDERED: FentaNYL Citrate 50 MCG/ML 2 ML Injection ONE (10:04)
[2024-11-24] MEDS ORDERED: COLESEVELAM HC625 MG PO (10:06)
[2024-11-24] MEDS ORDERED: NEBIVOLOL HCL5 MG PO (10:07)
[2024-11-24] MEDS ORDERED: Ropivacaine 0.5% HCL/PF 5 MG/ML 30ML Vial ONE (10:07)
[2024-11-24] MEDS ORDERED: CeFAZolin Sodium 2,000 MG VIAL ONE (10:12)
[2024-11-24] MEDS ORDERED: Lactated Ringer's 1,000 ML IV ONE (10:15)
[2024-11-24 11:56] VITALS: BP 118/69
== END 2024-11-24 11:53 | disposition home or self-care (01) ==
LOC: ORSCSDS 09:27
PROVIDERS: Podiatrist Foot & Ankle Surgery
PROC: 0SPL04Z Removal of Internal Fixation Device from Left Tarsometatarsal Joint, Open Approach (ICD-10-PCS; principal; 2024-11-24 10:45)
DX: T84.84XA Pain due to internal orthopedic prosthetic devices, implants and grafts, initial encounter (principal); E78.5 Hyperlipidemia, unspecified; E03.9 Hypothyroidism, unspecified; J45.909 Unspecified asthma, uncomplicated; Z96.643 Presence of artificial hip joint, bilateral; I25.2 Old myocardial infarction; K21.9 Gastro-esophageal reflux disease without esophagitis; Z79.899 Other long term (current) drug therapy; I10 Essential (primary) hypertension; Z86.73 Personal history of transient ischemic attack (TIA), and cerebral infarction without residual deficits; I25.10 Atherosclerotic heart disease of native coronary artery without angina pectoris
CPT/HCPCS: J0690; J1100; J1885; J2405; J2704; J2795; J3010; J7120

== ENCOUNTER 2025-02-18 04:08 | Emergency (ER) | payer MEDICARE, OTHER ==
[~2025-02-18] VITALS: Ht 157.5 cm; Wt 61.2 kg
[~2025-02-18 04:08] MED LIST changes: +COLESEVELAM HC625 MG PO; -Lactated Ringer's 1,000 ML IV ONE; +NEBIVOLOL HCL5 MG PO
[2025-02-18 04:33] LABS: BASOPHILS ABSOLUTE AUTO 0.03 K/mm3 (0.00-0.23); BASOPHILS PERCENT AUTO 1 % (0-2); EOSINOPHILS ABSOLUTE AUTO 0.19 K/mm3 (0.00-0.68); EOSINOPHILS PERCENT AUTO 3 % (0-6); Hematocrit 38.8 % (33.0-51.0); Hemoglobin 12.9 g/dL (11.5-16.0); IMMATURE GRAN ABSOLUTE AUTO 0.02 K/mm3 (0.00-0.10); IMMATURE GRAN PERCENT AUTO 0 % (0-1); LYMPHOCYTES ABSOLUTE AUTO 1.42 K/mm3 (0.84-5.20); LYMPHOCYTES PERCENT AUTO 23 % (21-46); MONOCYTES ABSOLUTE AUTO 0.42 K/mm3 (0.16-1.47); MONOCYTES PERCENT AUTO 7 % (4-13); Mean Corpuscular HGB 30.6 pg (26.0-34.0); Mean Corpuscular HGB Conc 33.2 g/dL (31.5-36.5); Mean Corpuscular Volume 92 fL (80-100); Mean Platelet Volume 9.4 fL (9.1-12.4); NEUTROPHILS ABSOLUTE AUTO 3.98 K/mm3 (1.96-9.15); NEUTROPHILS PERCENT AUTO 66 % (41-73); Platelet Count 244 K/mm3 (150-400); RDW Coefficient Variation 13.5 % (11.7-14.2); Red Blood Cell Count 4.22 M/mm3 (3.80-5.20); White Blood Cell Count 6.06 K/mm3 (4.00-11.30)
[2025-02-18 04:51] LABS: Albumin, Blood 3.7 g/dL (3.4-5.0); Albumin/Globulin Ratio 1.3 (0.8-1.8); Bilirubin, Total 0.5 mg/dL (0.1-1.0); Bun/Creatinine Ratio 25.9 (12.0-20.0); Calcium, Blood 9.3 mg/dL (8.5-10.1); Creatinine, Blood 0.62 mg/dL (0.40-1.00); Globulin, Blood 2.9 g/dL (2.2-4.0); Potassium, Blood 4.1 mmol/L (3.5-5.5); Total Protein, Blood 6.6 g/dL (6.4-8.2)
[2025-02-18] MEDS ORDERED: FentaNYL Citrate 50 MCG/ML 2 ML Injection IV ONE (05:15)
[2025-02-18] MEDS ORDERED: Diazepam 5 MG / ML 2ML SYR IV ONE (06:25)
[2025-02-18 06:30] VITALS: BP 117/62
[2025-02-18] MEDS ORDERED: Dexamethasone Sod Phos 10 MG/ML 1ML VIAL IV ONE (08:05)
[2025-02-18] MEDS ORDERED: CYCL10 PO (08:12)
== END 2025-02-18 08:43 | disposition home or self-care (01) ==
LOC: ER 04:08
PROVIDERS: Student in an Organized Health Care Education/Training Program
DX: R07.9 Chest pain, unspecified (principal); M79.651 Pain in right thigh; I25.2 Old myocardial infarction; Z79.899 Other long term (current) drug therapy; Z79.890 Hormone replacement therapy; Z95.5 Presence of coronary angioplasty implant and graft; Z87.891 Personal history of nicotine dependence
CPT/HCPCS: 71046; 80053; 83690; 84484; 85025; 85379; 93005; 93010; 96374; 96375; 99285-25; J3010; J3360

== ENCOUNTER 2025-02-21 04:50 | Day surgery (SDC) | payer MEDICARE, OTHER ==
[~2025-02-21 04:50] MED LIST changes: +CYCL10 PO
[2025-02-21] MEDS ORDERED: INCLISIRAN SODIUM 284 MG/1.5 ML SYRINGE SC SCH (06:00)
[2025-02-21 11:22] VITALS: BP 117/65
[2025-02-21] MEDS ORDERED: COLE625 PO (11:42)
== END 2025-02-21 11:52 | disposition home or self-care (01) ==
LOC: ATC 04:50
DX: E78.5 Hyperlipidemia, unspecified (principal); I25.10 Atherosclerotic heart disease of native coronary artery without angina pectoris; K21.9 Gastro-esophageal reflux disease without esophagitis; K52.9 Noninfective gastroenteritis and colitis, unspecified; E03.9 Hypothyroidism, unspecified; M79.7 Fibromyalgia; J31.0 Chronic rhinitis; I11.0 Hypertensive heart disease with heart failure; I50.20 Unspecified systolic (congestive) heart failure; Z88.8 Allergy status to other drugs, medicaments and biological substances; Z79.890 Hormone replacement therapy; Z79.02 Long term (current) use of antithrombotics/antiplatelets; Z79.899 Other long term (current) drug therapy
CPT/HCPCS: 96372; J1306

== ENCOUNTER 2025-05-24 02:53 | Day surgery (SDC) | payer MEDICARE, OTHER ==
[~2025-05-24 02:53] MED LIST changes: +COLE625 PO
[2025-05-24] MEDS ORDERED: INCLISIRAN SODIUM 284 MG/1.5 ML SYRINGE SC SCH (06:00)
--- NOTE | 2025-05-24 11:38 | NUR ---
NO CALL, NO SHOW
== END 2025-05-24 23:00 | disposition home or self-care (01) ==
LOC: ATC 02:53
DX: E78.5 Hyperlipidemia, unspecified (principal); I25.10 Atherosclerotic heart disease of native coronary artery without angina pectoris; K52.9 Noninfective gastroenteritis and colitis, unspecified; K21.9 Gastro-esophageal reflux disease without esophagitis; E03.9 Hypothyroidism, unspecified; Z86.73 Personal history of transient ischemic attack (TIA), and cerebral infarction without residual deficits; Z79.02 Long term (current) use of antithrombotics/antiplatelets; Z79.890 Hormone replacement therapy; Z79.899 Other long term (current) drug therapy; Z88.8 Allergy status to other drugs, medicaments and biological substances; Z95.5 Presence of coronary angioplasty implant and graft

== ENCOUNTER 2025-05-28 00:59 | Day surgery (SDC) | payer MEDICARE, OTHER ==
[2025-05-28] MEDS ORDERED: INCLISIRAN SODIUM 284 MG/1.5 ML SYRINGE SC SCH (06:00)
[2025-05-28 11:10] VITALS: BP 129/66
== END 2025-05-28 11:13 | disposition home or self-care (01) ==
LOC: ATC 00:59
DX: E78.5 Hyperlipidemia, unspecified (principal); I25.10 Atherosclerotic heart disease of native coronary artery without angina pectoris; G43.909 Migraine, unspecified, not intractable, without status migrainosus; E03.9 Hypothyroidism, unspecified; K21.9 Gastro-esophageal reflux disease without esophagitis; M79.7 Fibromyalgia; J31.0 Chronic rhinitis; G60.9 Hereditary and idiopathic neuropathy, unspecified; M15.9 Polyosteoarthritis, unspecified; E55.9 Vitamin D deficiency, unspecified; K58.0 Irritable bowel syndrome with diarrhea; M81.0 Age-related osteoporosis without current pathological fracture; M21.611 Bunion of right foot; I73.9 Peripheral vascular disease, unspecified; M21.41 Flat foot [pes planus] (acquired), right foot; M21.42 Flat foot [pes planus] (acquired), left foot; I10 Essential (primary) hypertension; Z86.73 Personal history of transient ischemic attack (TIA), and cerebral infarction without residual deficits; Z87.891 Personal history of nicotine dependence; Z79.02 Long term (current) use of antithrombotics/antiplatelets; Z79.890 Hormone replacement therapy; Z79.899 Other long term (current) drug therapy; Z88.1 Allergy status to other antibiotic agents; Z88.8 Allergy status to other drugs, medicaments and biological substances
CPT/HCPCS: 96372; J1306

== ENCOUNTER 2025-11-26 02:37 | Day surgery (SDC) | payer MEDICARE, OTHER ==
[2025-11-26] MEDS ORDERED: INCLISIRAN SODIUM 284 MG/1.5 ML SYRINGE SC SCH (11:20)
[2025-11-26 11:23] VITALS: BP 153/65
== END 2025-11-26 11:28 | disposition home or self-care (01) ==
LOC: ATC 02:37
DX: E78.5 Hyperlipidemia, unspecified (principal); I25.10 Atherosclerotic heart disease of native coronary artery without angina pectoris; K21.9 Gastro-esophageal reflux disease without esophagitis; E03.9 Hypothyroidism, unspecified; I10 Essential (primary) hypertension; Z87.891 Personal history of nicotine dependence
CPT/HCPCS: 96372; J1306